=== PATIENT | female | born 1960 | race Caucasian/White ===

== ENCOUNTER 2016-08-24 09:56 | Outpatient (RCR) | payer BC ==
--- OUTSIDE RECORDS SUMMARY | 2016-07-18 13:51 | XMS REPORT | Continuity of Care Document ---
Author Author [facility] Organization [facility] Address Unknown Phone Unavailable Care Team Providers Care Label Stamper Name Role Phone NO, LOCAL PHYSICIAN PCP Unavailable Insurance Providers Payer Name Policy Number Subscriber Name Relationship [facility] [id number] GilbertChhaya 18 Self / Same As Patient Advance Directives Directive Response Recorded Date/Time Advance Directives No 05/18/16 4:25am Resuscitation Status Full Code 05/18/16 4:25am Chief Complaint and Reason for Visit Chief Complaint Abdominal/GI Problems Reason for Visit [id number] Problems Active Problems Medical Problem Onset Date Status Lumbar sprain Unknown Acute Ureteral stone Unknown Acute Medications Current Home Medications Medication Dose Units Route Directions Days/Qty Instructions Start Date Cyclobenzaprine Hcl (Flexeril) 10 Mg 1 Each Oral Twice A Day 20 Acetaminophen/Hydrocodone Bitart 1 Ea 1 Ea Oral Q 4 - 6 Hrs Prn 30 07/09 Ciprofloxacin Hcl 500 Mg 500 Mg Oral Twice A Day 14 05/18/16 Hydrocodone/Acetaminophen 1 Each 1 Each Oral Every 6 Hours as needed for Pain 12 05/18/16 Social History Social History Problem Response Recorded Date/Time Alcohol Use Denies Use 07/27/2013 12:17pm Recreational Drug Use No 07/27/2013 12:17pm Recent Foreign Travel No 05/18/2016 4:25am Recent Infectious Disease Exposure No 05/18/2016 4:25am Smoking Status Never a Smoker 05/18/2016 4:38am Recent Hopitalizations No 05/18/2016 4:25am Query Response Start Date Stop Date Smoking Status Never a Smoker Hospital Discharge Instructions No hospital discharge instructions. Plan of Care Discharge Date 05/18/16 6:20am Disposition 01 HOME, SELF-CARE Condition at Discharge Stable Instructions/Education Provided Kidney Stones (DC) Prescriptions See Medication Section Referrals NO,LOCAL PHYSICIAN - Primary Care Physician SELINA GLYNN MD - Additional Instructions/Education All discharge instructions reviewed with patient and/or family. Voiced understanding. Drink plenty of fluids. Follow-up with Dr. Glynn as needed. Return for worse pain, fever, vomiting, weakness, breathing problems or other concerns as needed. You should take ibuprofen 800 mg every 8 hours for the next 3 days and then as needed. Take other pain medicines as directed. Take antibiotics as directed. Functional Status No functional status results. Allergies, Adverse Reactions, Alerts Allergen Type Severity Reaction Status Last Updated Penicillins ([id number]) Allergy Unknown Active 04/26/06 Codeine Adverse Reaction Unknown NAUSEA,VOMITING Active 04/26/06 Meperidine Allergy Active 07/27/13 Immunizations No immunization records. Vital Signs Acute Vital Signs Vital Response Date/Time Temperature (Fahrenheit) 98.0 degrees F (97.6 - 99.5) 05/18/2016 4:25am Temperature (Calculated Celsius) 36.08099 degrees C (36.4 - 37.5) 05/18/2016 4:25am Temperature Source Temporal 05/18/2016 4:25am Pulse Rate (adult) 78 bpm (60 - 90) 05/18/2016 4:25am Respiratory Rate 18 bpm (12 - 24) 05/18/2016 4:25am O2 Sat by Pulse Oximetry 98 % (88 - 100) 05/18/2016 4:25am Blood Pressure 115/73 mm Hg 05/18/2016 4:25am Blood Pressure Mean 87 mm Hg 05/18/2016 4:25am Pain Numeric Pain Scale 5-Moderate Pain 05/18/2016 6:02am Height (Feet) 5 feet 05/18/2016 4:25am Height (Inches) 6 inches 05/18/2016 4:25am Height (Calculated Centimeters) 167.909305 cm 05/18/2016 4:25am Weight (Pounds) 140 pounds 05/18/2016 4:25am Weight (Calculated Kilograms) 63.455988 kilograms 05/18/2016 4:25am Capillary Refill Capillary Refill Less Than 3 Seconds 05/18/2016 4:25am Height 5 ft 6 in Weight 140 lb Body Mass Index 22.6 kg/m^2 Results Laboratory Results Test Name Result Units Flags Reference Collection Date/Time Result Date/ Time Comments White Blood Count 5.1 10^3/uL 4.3-11.0 05/18/2016 4:am 05/18/2016 4: 36am Red Blood Count 4.29 10^6/uL L 4.35-5.85 05/18/2016 4:05/18/2016 4: 36am Hemoglobin 13.1 G/DL 11.5-16.0 05/18/2016 4:05/18/2016 4:36am Hematocrit 39 % 35-52 05/18/2016 4:05/18/2016 4:36am Mean Corpuscular Volume 92 FL 80-99 05/18/2016 4:05/18/2016 4: 36am Mean Corpuscular Hemoglobin 31 PG 25-34 05/18/2016 4:05/18/2016 4: 36am Mean Corpuscular Hemoglobin Concent 33 G/DL 32-36 05/18/2016 4: 4:36am Red Cell Distribution Width 12.7 % 10.0-14.5 05/18/2016 4:2015 4:36am Platelet Count 268 10^3/uL 130-400 05/18/2016 4:05/18/2016 4:36am Mean Platelet Volume 9.4 FL 7.4-10.4 05/18/2016 4:05/18/2016 4: 36am Neutrophils (%) (Auto) 39 % L 42-75 05/18/2016 4:05/18/2016 4:36am Lymphocytes (%) (Auto) 44 % 12-44 05/18/2016 4:05/18/2016 4:36am Monocytes (%) (Auto) 11 % 0-12 05/18/2016 4:05/18/2016 4:36am Eosinophils (%) (Auto) 5 % 0-10 05/18/2016 4:05/18/2016 4:36am Basophils (%) (Auto) 1 % 0-10 05/18/2016 4:05/18/2016 4:36am Neutrophils # (Auto) 2.0 X 10^3 1.8-7.8 05/18/2016 4:05/18/2016 4: 36am Lymphocytes # (Auto) 2.3 X 10^3 1.0-4.0 05/18/2016 4:05/18/2016 4: 36am Monocytes # (Auto) 0.6 X 10^3 0.0-1.0 05/18/2016 4:am 05/18/2016 4: 36am Eosinophils # (Auto) 0.2 10^3/uL 0.0-0.3 05/18/2016 4:05/18/2016 4 :36am Basophils # (Auto) 0.1 10^3/uL 0.0-0.1 05/18/2016 4:05/18/2016 4: 36am Urine Color YELLOW 05/18/2016 5:06am 05/18/2016 5:25am Urine Clarity CLEAR 05/18/2016 5:06am 05/18/2016 5:25am Urine pH 5 5-9 05/18/2016 5:06am 05/18/2016 5:25am Urine Specific [place] 1.025 * 1.016-1.022 05/18/2016 5:06am 2015 5:25am Urine Protein NEGATIVE NEGATIVE 05/18/2016 5:06am 05/18/2016 5:25am Urine Glucose (UA) NEGATIVE NEGATIVE 05/18/2016 5:06am 05/18/2016 5: 25am Urine RBC (Auto) 5+ * NEGATIVE 05/18/2016 5:06am 05/18/2016 5:25am Urine Ketones NEGATIVE NEGATIVE 05/18/2016 5:06am 05/18/2016 5:25am Urine Nitrite NEGATIVE NEGATIVE 05/18/2016 5:06am 05/18/2016 5:25am Urine Bilirubin NEGATIVE NEGATIVE 05/18/2016 5:06am 05/18/2016 5: 25am Urine Urobilinogen NORMAL MG/DL NORMAL 05/18/2016 5:06am 05/18/2016 5: 25am Urine Leukocyte Esterase NEGATIVE NEGATIVE 05/18/2016 5:06am 2015 5:25am Urine RBC 50-100 /HPF * 05/18/2016 5:06am 05/18/2016 5:25am Urine WBC 0-2 /HPF 05/18/2016 5:06am 05/18/2016 5:25am Urine Bacteria TRACE /HPF 05/18/2016 5:06am 05/18/2016 5:25am Urine Crystals PRESENT /LPF * 05/18/2016 5:06am 05/18/2016 5:25am Urine Calcium Oxalate Crystals MODERATE /LPF * 05/18/2016 5:06am 2015 5:25am Urine Casts NONE /LPF 05/18/2016 5:06am 05/18/2016 5:25am Urine Mucus NEGATIVE /LPF 05/18/2016 5:06am 05/18/2016 5:25am Urine Culture Indicated NO 05/18/2016 5:06am 05/18/2016 5:25am Sodium Level 142 MMOL/L 135-145 05/18/2016 4:27am 05/18/2016 5:04am Potassium Level 4.1 MMOL/L 3.6-5.0 05/18/2016 4:27am 05/18/2016 5:04am Chloride Level 110 MMOL/L H 98-107 05/18/2016 4:27am 05/18/2016 5:04am Carbon Dioxide Level 19 MMOL/L L 21-32 05/18/2016 4:27am 05/18/2016 5: 04am Anion Gap 13 MMOL/L 5-14 05/18/2016 4:27am 05/18/2016 5:04am Blood Urea Nitrogen 12 MG/DL 7-18 05/18/2016 4:27am 05/18/2016 5:04am Creatinine 0.97 MG/DL 0.60-1.30 05/18/2016 4:27am 05/18/2016 5:04am BUN/Creatinine Ratio 12 05/18/2016 4:27am 05/18/2016 5:04am Estimat Glomerular Filtration Rate 60 05/18/2016 4:27am 05/18/2016 5:04am GFR INTERPRETIVE DATA UNITS FOR ESTIMATED GFR (eGFR): mL/min/1.73 M2 REFERENCE RANGE FOR ESTIMATED GFR (eGFR) eGFR NORMAL eGFR >60 MODERATELY DECREASED eGFR 30-59 SEVERLY DECREASED eGFR 15-29 KIDNEY FAILURE <15 (OR DIALYSIS) Glucose Level 139 MG/DL H 70-105 05/18/2016 4:am 05/18/2016 5:04am Calcium Level 9.1 MG/DL 8.5-10.1 05/18/2016 4:2705/18/2016 5:04am Total Bilirubin 0.4 MG/DL 0.1-1.0 05/18/2016 4:27am 05/18/2016 5:04am Alkaline Phosphatase 84 U/L 40-136 05/18/2016 4:am 05/18/2016 5:04am Aspartate Amino Transf (AST/SGOT) 25 U/L 5-34 05/18/2016 4:am 2015 5:04am Alanine Aminotransferase (ALT/SGPT) 19 U/L 0-55 05/18/2016 4:am 05/18 5:04am Total Protein 6.6 G/DL 6.4-8.2 05/18/2016 4:am 05/18/2016 5:04am Albumin 4.0 G/DL 3.2-4.5 05/18/2016 4:am 05/18/2016 5:04am Procedures No known history of procedures. Encounters Encounter Location Arrival/Admit Date Discharge/Depart Date Attending Provider Departed Emergency Room [facility] 05/18/16 4:am 05/18 6:20am IRMA HUNTER MD Recent Diagnosis
[2016-07-18 14:41] LABS: ANION GAP 10 MMOL/L (5-14); BLOOD UREA NITROGEN 12 MG/DL (7-18); BUN/CREATININE RATIO 13; CALCIUM 9.5 MG/DL (8.5-10.1); CARBON DIOXIDE 25 MMOL/L (21-32); CHLORIDE 106 MMOL/L (98-107); CREATININE SERUM 0.92 MG/DL (0.60-1.30); GFR ESTIMATED > 60; GLUCOSE 95 MG/DL (70-105); PHOSPHORUS 3.9 MG/DL (2.3-4.7); POTASSIUM 3.7 MMOL/L (3.6-5.0); SODIUM 141 MMOL/L (135-145); URIC ACID 4.6 MG/DL (2.6-7.2)
[2016-07-19 07:40] LABS: CALCIUM PARA THYROID HORMONE 9.9 mg/dL (8.5-10.5)
[~2016-08-24 09:56] MED LIST: CIPR500T4 PO; CYCL10TA9 PO; HYDR-3720 PO; HYDR-3812 PO; HYDR-3820 PO; NITR-65 PO; PHEN-640 PO
[2016-08-27 18:38] LABS: STONE RISK AMMONIUM 37 mEq/24hr (14-62); STONE RISK BRUSHITE 4.56 (< 2.00); STONE RISK CALCIUM 379 mg/day (< 250); STONE RISK CITRATE 1516 mg/day (> 320); STONE RISK CREATININE 2158 mg/day (600-1800); STONE RISK MAGNESIUM 241 mg/day (> 60); STONE RISK OXALATE 51 mg/day (< 45); STONE RISK PH 6.2 (5.5-7.0); STONE RISK PHOSPHOROUS 1496 mg/day (< 1100); STONE RISK POTASSIUM 52 mEq/24hr (19-135); STONE RISK SODIUM 217 mEq/24hr (< 200); STONE RISK SODIUM URATES 4.33 (< 2.00); STONE RISK STRUVITE 3.85 (< 75.00); STONE RISK SULFITE 19 mmol/day (< 30); STONE RISK TOTAL VOLUME 1.55 L/day (> 2.00); STONE RISK URIC ACID 671 mg/day (< 700); STONE RISK URIC ACID SAT 1.19 (< 2.00)
== END 2016-10-16 | disposition home or self-care (01) ==
LOC: LAB 09:56
PROVIDERS: ATTEND Urology
DX: N20.9 Urinary calculus, unspecified (principal)
CPT/HCPCS: 36415; 80048; 82140; 82340; 82507; 82570; 83735; 83945; 83970; 83986; 84100; 84105; 84133; 84300; 84392; 84550; 84560

== ENCOUNTER → 2019-06-25 | Outpatient (CLI) | payer BC ==
[~2019-06-25] MED LIST changes: +ACHD5005 PO; -HYDR-3812 PO
[2019-06-25 15:59] LABS: BASOPHILS % (AUTO) 1 % (0-10); EOSINOPHILS # (AUTO) 0.1 10^3/uL (0.0-0.3); EOSINOPHILS % (AUTO) 3 % (0-10); HEMATOCRIT 41 % (35-52); HEMOGLOBIN 13.5 G/DL (11.5-16.0); LYMPHOCYTES # (AUTO) 1.2 X 10^3 (1.0-4.0); LYMPHOCYTES % (AUTO) 29 % (12-44); MEAN CORPUSCULAR HEMOGLOBIN 31 PG (25-34); MEAN CORPUSCULAR HGB CONC 33 G/DL (32-36); MEAN CORPUSCULAR VOLUME 94 FL (80-99); MEAN PLATELET VOLUME 9.2 FL (7.4-10.4); MONOCYTES # (AUTO) 0.3 X 10^3 (0.0-1.0); MONOCYTES % (AUTO) 8 % (0-12); NEUTROPHILS # (AUTO) 2.5 X 10^3 (1.8-7.8); NEUTROPHILS % (AUTO) 60 % (42-75); PLATELET COUNT 242 10^3/uL (130-400); RED CELL DISTRIBUTION WIDTH 12.6 % (10.0-14.5); WHITE BLOOD COUNT 4.2 10^3/uL (4.3-11.0)
--- NOTE | 2019-06-25 16:08 | Diagnostic Imaging Report ---
Indication: Right flank pain KUB 3:45 PM There are mild degenerative changes in the lumbosacral spine. Bowel gas pattern is normal. There are no pathologic masses or calcifications. IMPRESSION: No acute abnormalities in the abdomen. Dictated by: Dictated on workstation # [id number]
[2019-06-25 16:27] LABS: ALANINE AMINOTRANSFERASE 12 U/L (0-55); ALBUMIN 4.4 GM/DL (3.2-4.5); ALKALINE PHOSPHATASE 67 U/L (40-136); BILIRUBIN,TOTAL 0.5 MG/DL (0.1-1.0); BUN/CREATININE RATIO 8; CALCIUM 9.1 MG/DL (8.5-10.1); CARBON DIOXIDE 23 MMOL/L (21-32); CHLORIDE 108 MMOL/L (98-107); CHOLESTEROL 200 MG/DL (< 200); CREATININE SERUM 0.83 MG/DL (0.60-1.30); GFR ESTIMATED > 60; GLUCOSE 95 MG/DL (70-105); HDL CHOLESTEROL 53 MG/DL (40-60); POTASSIUM 3.7 MMOL/L (3.6-5.0); SODIUM 141 MMOL/L (135-145); TOTAL PROTEIN 6.7 GM/DL (6.4-8.2); TRIGLYCERIDES 206 MG/DL (<150); VLDL CHOLESTEROL 41 MG/DL (5-40)
== END ==
LOC: RAD 15:26
PROVIDERS: ATTEND Nurse Practitioner Family
DX: Z13.220 Encounter for screening for lipoid disorders (principal); Z00.00 Encounter for general adult medical examination without abnormal findings; E55.0 Rickets, active; N20.0 Calculus of kidney; R53.83 Other fatigue
CPT/HCPCS: 36415; 74018; 80053; 80061; 82306; 84443; 85025

== ENCOUNTER → 2019-07-04 | Outpatient (CLI) | payer BC, OTHER ==
--- NOTE | 2019-07-04 16:23 | Diagnostic Imaging Report ---
INDICATION: Routine screening. No prior mammograms are available for comparison. 2-D and 3-D bilateral screening mammography was performed. The current study was also evaluated with a Computer Aided Detection (CAD) system. 3-D tomosynthesis was also performed and reviewed. FINDINGS: Both breasts are heterogeneously dense, limiting the sensitivity of mammography. No dominant mass or malignant-appearing microcalcifications are seen. Axillae are unremarkable. IMPRESSION: No mammographic features suspicious for malignancy are identified. ACR BI-RADS Category 1: Negative. Result letter will be mailed to the patient. Note: At least 10% of breast cancer is not imaged by mammography. Dictated by: Dictated on workstation # [id number]
== END ==
LOC: RAD 11:32
PROVIDERS: ATTEND Nurse Practitioner Family
DX: Z12.31 Encounter for screening mammogram for malignant neoplasm of breast (principal)
CPT/HCPCS: 77067

== ENCOUNTER 2019-11-15 22:47 | Emergency (ER) | payer OTHER ==
[~2019-11-15] VITALS: Ht 168 cm; Wt 62.1 kg
[~2019-11-15 22:47] MED LIST changes: +ACHYD1T PO; -HYDR-3820 PO
[2019-11-15] MEDS ORDERED: VITAMIN (22:59)
[2019-11-15] MEDS ORDERED: NS IV 1000 ML 1,000 ML IV ONE (23:00)
[2019-11-15] MEDS ORDERED: fentaNYL INJECTION 100 MCG/2 ML AMP IVP STA (23:00)
[2019-11-15 23:25] LABS: BASOPHILS % (AUTO) 0 % (0-10); EOSINOPHILS # (AUTO) 0.1 10^3/uL (0.0-0.3); EOSINOPHILS % (AUTO) 1 % (0-10); HEMATOCRIT 40 % (35-52); HEMOGLOBIN 13.4 G/DL (11.5-16.0); LYMPHOCYTES # (AUTO) 2.1 X 10^3 (1.0-4.0); LYMPHOCYTES % (AUTO) 24 % (12-44); MEAN CORPUSCULAR HEMOGLOBIN 31 PG (25-34); MEAN CORPUSCULAR HGB CONC 33 G/DL (32-36); MEAN CORPUSCULAR VOLUME 92 FL (80-99); MEAN PLATELET VOLUME 9.1 FL (7.4-10.4); MONOCYTES # (AUTO) 0.7 X 10^3 (0.0-1.0); MONOCYTES % (AUTO) 8 % (0-12); NEUTROPHILS % (AUTO) 67 % (42-75); PLATELET COUNT 259 10^3/uL (130-400); WHITE BLOOD COUNT 8.8 10^3/uL (4.3-11.0)
--- NOTE | 2019-11-15 23:25 | ED Fall/Injury ---
General Chief Complaint: Trauma-Non Activation Stated Complaint: FELL BACK PAIN Nursing Triage Note: PT REPORTS APPROX. 5FT FALL FROM LADDER LANDING ON [place]. C/O RIGHT BACK PAIN RADIATING TO RIBS. Source: patient Exam Limitations: no limitations History of Present Illness Date Seen by Provider: November 15, 2019 Time Seen by Provider: 22:48 Initial Comments Here with report of fall from a ladder about 5 feet. She was standing on the la dder and a knee. She when the neighbor bridge actually toppled over and she fell on top of the landing flat on her back. Complains of severe right side chest pain posterior and lateral down to the lower rib margin. Does have abrasions at the lateral posterior junction on the right midthoracic with bruising and pain to the lower portion. Denies loss of consciousness. States that it did significantly knocked the wind out of her. Denies hitting her head. This occurred about 4:30 PM and she tried to tough it out until now. States the pain is so bad when she is laying back that she can't hardly breathe. She has to sit up and forward to get comfortable area. Denies other injury. Denies nausea or vomiting. Denies dysuria. She tried topical patch with lidocaine to help and that did not. Location Injury Occurred: HOME Occurred: this afternoon Severity: moderate Injuries/Pain Location: chest, abdomen, back Context: slipped Loss of Consciousness: no loss of consciousness Modifying Factors: Worse With Movement Associated Symptoms (Fall): Abdominal Pain, Chest Pain; No Confusion, No Headache, No Lightheadedness; Muscle Spasms; No Nausea/Vomiting, No Neck Pain, No Trouble Walking Allergies and Home Medications Allergies Coded Allergies: Penicillins (Verified Allergy, Unknown, 04/26/06) meperidine (Verified Allergy, Unknown, 06/23/16) codeine (Verified Adverse Reaction, Unknown, NAUSEA,VOMITING, 04/26/06) Patient Home Medication List Home Medication List Reviewed: Yes Review of Systems Review of Systems Constitutional: see HPI; No chills, No fever Eyes: No Symptoms Reported Ears, Nose, Mouth, Throat: no symptoms reported Respiratory: No cough; other (pain with moderate to deep breathing.) Cardiovascular: chest pain; No palpitations Gastrointestinal: abdominal pain (right-sided); No nausea, No vomiting Genitourinary: no symptoms reported Musculoskeletal: see HPI, back pain, muscle pain, muscle stiffness Skin: change in color, lesions Psychiatric/Neurological: No Symptoms Reported All Other Systems Reviewed Negative Unless Noted: Yes Past Iorcdds-Jgsmdf-Ieknvg Hx Past Med/Social Hx: Reviewed Nursing Past Med/Soc Hx Patient Social History Alcohol Use: Denies Use Recreational Drug Use: No Smoking Status: Never a Smoker Recent Foreign Travel: No Contact w/Someone Who Travel: No Recent Infectious Disease Expo: No Recent Hopitalizations: No Physical Abuse: No Sexual Abuse: No Mistreated: No Fear: No Immunizations Up To Date Tetanus Booster (TDap): Unknown Seasonal Allergies Seasonal Allergies: No Past Medical History Surgeries: Yes (partial hysterectomy, LITHOTRYPSY) Hysterectomy Respiratory: No Cardiac: No Neurological: No : No Reproductive Disorders: No ASSISTANT GROCERY History: Menopausal Genitourinary: Yes Kidney Stones Gastrointestinal: No Musculoskeletal: No Endocrine: No HEENT: Yes Cataract Cancer: No Psychosocial: No Integumentary: No Blood Disorders: Yes Adverse Reaction/Blood Tranf: No Family Medical History Reviewed Nursing Family Hx Cataracts 19 FATHER 19 MOTHER Diabetes mellitus 19 FATHER FH: breast cancer 19 MOTHER FHx: heart disease 19 FATHER G8 SISTER Hypertension 19 FATHER G8 SISTER Physical Exam Vital Signs Vital Signs - First Documented 11/15/19 22:52 Temp 36.6 Pulse 93 Resp 16 B/P (MAP) 126/93 (104) Pulse Ox 98 O2 Delivery Room Air Capillary Refill : Less Than 3 Seconds Height, Weight, BMI Height: 5'6.00" Weight: 150lbs. 0.0oz. 68.730364nh; 22.00 BMI Method:Stated General Appearance: WD/WN, mild distress HEENT: PERRL/EOMI, pharynx normal Neck: non-tender, full range of motion, supple, normal inspection Cardiovascular: regular rate, rhythm, no murmur Respiratory: lungs clear, other (unable to take deep breath due to pain but lung sounds all 4 quadrants) Peripheral Pulses: 2+ Dorsalis Pedis (R), 2+ Left Dors-Pedis (L), 2+ Radial Pulses (R), 2+ Radial Pulses (L) Gastrointestinal: soft; No guarding, No rebound; tenderness (right flank and right upper quadrant) Back: no vertebral tenderness, muscle spasm (with deep breathing), other (right sided back pain from the mid to lower rib margin) Extremities: normal range of motion, non-tender, normal inspection Neurologic/Psychiatric: alert, oriented x 3 Skin: warm/dry, ecchymosis (right posterior lateral rib margin mid chest and lower), other (abrasion to the mid rib line In the lateral posterior junction on the right) [place] Coma Score Best Eye Response: (4) Open Spontaneously Best Verbal Response: (5) Oriented Best Motor Response: (6) Obeys Commands Progress/Results/Core Measures Results/Orders Lab Results Laboratory Tests Test 11/15/19 23:00 Range/Units White Blood Count 8.8 4.3-11.0 10^3/uL Red Blood Count 4.37 4.35-5.85 10^6/uL Hemoglobin 13.4 11.5-16.0 G/DL Hematocrit 40 35-52 % Mean Corpuscular Volume 92 80-99 FL Mean Corpuscular Hemoglobin 31 25-34 PG Mean Corpuscular Hemoglobin Concent 33 32-36 G/DL Red Cell Distribution Width 13.0 10.0-14.5 % Platelet Count 259 130-400 10^3/uL Mean Platelet Volume 9.1 7.4-10.4 FL Neutrophils (%) (Auto) 67 42-75 % Lymphocytes (%) (Auto) 24 12-44 % Monocytes (%) (Auto) 8 0-12 % Eosinophils (%) (Auto) 1 0-10 % Basophils (%) (Auto) 0 0-10 % Neutrophils # (Auto) 6.0 1.8-7.8 X 10^3 Lymphocytes # (Auto) 2.1 1.0-4.0 X 10^3 Monocytes # (Auto) 0.7 0.0-1.0 X 10^3 Eosinophils # (Auto) 0.1 0.0-0.3 10^3/uL Basophils # (Auto) 0.0 0.0-0.1 10^3/uL Sodium Level 140 135-145 MMOL/L Potassium Level 3.6 3.6-5.0 MMOL/L Chloride Level 107 98-107 MMOL/L Carbon Dioxide Level 23 21-32 MMOL/L Anion Gap 10 5-14 MMOL/L Blood Urea Nitrogen 7 7-18 MG/DL Creatinine 0.88 0.60-1.30 MG/DL Estimat Glomerular Filtration Rate > 60 BUN/Creatinine Ratio 8 Glucose Level 118 H 70-105 MG/DL Calcium Level 9.5 8.5-10.1 MG/DL Corrected Calcium 9.1 8.5-10.1 MG/DL Total Bilirubin 0.8 0.1-1.0 MG/DL Aspartate Amino Transf (AST/SGOT) 19 5-34 U/L Alanine Aminotransferase (ALT/SGPT) 16 0-55 U/L Alkaline Phosphatase 74 40-136 U/L Total Protein 7.2 6.4-8.2 GM/DL Albumin 4.5 3.2-4.5 GM/DL My Orders Orders - IRMA HUNTER MD Cbc With Automated Diff (11/15/19 23:00) Comprehensive Metabolic Panel (11/15/19:00) Ed Iv/Invasive Line Start (11/15/19:00) Ed Iv/Invasive Line Start (11/15/19 23:00) Ns Iv 1000 Ml (Sodium Chloride 0.9%) (11/15/19 23:00) Fentanyl Injection (Sublimaze Injection (11/15/19 23:00) Ct Chest/Abdomen/Pelvis W (11/15/19 23:00) Iohexol Injection (Omnipaque 350 Mg/Ml 1 (11/16/19 00:00) Received Contrast (Hold Metformin- Contr (11/16/19 00:00) Ns (Ivpb) (Sodium Chloride 0.9% Ivpb Bag (11/16/19 00:00) Ketorolac Injection (Toradol Injection) (11/16/19 00:36) Medications Given in ED Current Medications Medications Dose Ordered Sig/Tiffany Route Start Time Stop Time Status Last Admin Dose Admin Iohexol 100 ml ONCE ONCE IV 11/16/19 00:00 11/16/19 00:02 DC 11/15/19 23:57 100 ML Sodium Chloride 100 ml ONCE ONCE IV 11/16/19 00:00 11/16/19 00:02 DC 11/15/19 23:57 80 ML Sodium Chloride 1,000 ml @ 0 mls/hr Q0M ONCE IV 11/15/19 23:00 11/15/19 23:20 DC 11/15/19 23:26 0 MLS/HR Vital Signs/I&O 11/15/19 22:52 Temp 36.6 Pulse 93 Resp 16 B/P (MAP) 126/93 (104) Pulse Ox 98 O2 Delivery Room Air Blood Pressure Mean: 104 Progress Progress Note : Progress Note Seen and evaluated. IV, labs, normal saline 1 L bolus, fentanyl 50 g IV, CT chest, abdomen and pelvis with contrast, scan ordered. Monitor patient. 0053: CT complete and no acute fractures or intra-abdominal findings. Toradol 15 mg IV ordered. Pain is starting to return now. She will get prescription in the morning. Discussed [id number] treatment as well. Discharged home with return precautions. Patient verbalize understanding instructions and agreement with plan. Diagnostic Imaging Diagonstic Imaging: CT Plain Films/CT/US/NM/MRI: chest, abdomen, pelvis Comments No evidence of acute chest injury. No evidence of acute injury to the abdomen and pelvis. Reviewed: Reviewed [place] Study, Reviewed by Me Departure Impression Primary Impression: Contusion, chest wall Qualified Codes: S20.211A - Contusion of right front wall of thorax, initial encounter Disposition: HOME, SELF-CARE Condition: Stable Departure-Patient Inst. Decision time for Depature: 00:55 Referrals: IMAN QUINTANILLA MD (PCP/Family) Primary Care Physician Patient Instructions: Bruised Rib (DC), Blunt Chest Trauma (DC) Add. Discharge Instructions: All discharge instructions reviewed with patient and/or family. Voiced understanding. You may use [id number] Icy Hot with lidocaine patches, Aspercreme with lidocaine patches, Salonpas with lidocaine patches or similar items to area of concern per package directions. You may take ibuprofen 600 mg every 8 hours as needed for pain or Aleve one or 2 tablets twice daily (not both as they are both same class of medicine). You may also take Tylenol/acetaminophen 1000 mg every 8 hours as needed for pain if you're not taking the prescribed pain medicine. Do not take both at the same time as they both have acetaminophen in them. Drink plenty of fluids and get plenty of rest. You may use ice or heat to area of concern which ever is more comfortable. Return for worse pain, fever, vomiting, weakness, breathing problems or other concerns as needed. Scripts Hydrocodone/Acetaminophen (Hydrocodone/Acetaminophen 5 MG/325 MG TAB) 1 Each Tablet 1 TAB PO Q6H for Pain MDD 10 TABS for 7 Days, #10 TAB 0 Refills Prov: IRMA HUNTER MD 11/16/19 IRMA HUNTER MD November 15, 2019 23:25
[2019-11-15 23:29] LABS: ALBUMIN 4.5 GM/DL (3.2-4.5)
[2019-11-15 23:30] LABS: CHLORIDE 107 MMOL/L (98-107); POTASSIUM 3.6 MMOL/L (3.6-5.0); SODIUM 140 MMOL/L (135-145)
[2019-11-15 23:31] LABS: CALCIUM 9.5 MG/DL (8.5-10.1)
[2019-11-15 23:32] LABS: GLUCOSE 118 MG/DL (70-105); TOTAL PROTEIN 7.2 GM/DL (6.4-8.2)
[2019-11-15 23:33] LABS: CARBON DIOXIDE 23 MMOL/L (21-32)
[2019-11-15 23:34] LABS: BILIRUBIN,TOTAL 0.8 MG/DL (0.1-1.0)
[2019-11-15 23:35] LABS: ALKALINE PHOSPHATASE 74 U/L (40-136)
[2019-11-15 23:36] LABS: CREATININE SERUM 0.88 MG/DL (0.60-1.30); GFR ESTIMATED > 60
[2019-11-15 23:37] LABS: BUN/CREATININE RATIO 8
[2019-11-15 23:39] LABS: ALANINE AMINOTRANSFERASE 16 U/L (0-55)
[2019-11-16] MEDS ORDERED: NS 100 ML (IVPB) BAG IV ONE
[2019-11-16] MEDS ORDERED: IOHEXOL 350 MG/ML 100 ML (OMNIPAQUE 350) VIAL IV ONE
[2019-11-16] MEDS ORDERED: HOLD METFORMIN - RECEIVED CONTRAST 20 ML VIAL IV SCH
[2019-11-16] MEDS ORDERED: KETOROLAC 30 MG/ML VIAL IVP STA (00:36)
[2019-11-16] MEDS ORDERED: HYDR-4226 PO (00:59)
[2019-11-16 01:00] VITALS: BP 122/74
--- NOTE | 2019-11-16 07:41 | Diagnostic Imaging Report ---
EXAMINATION: CT Chest, Abdomen and Pelvis with intravenous contrast. TECHNIQUE: Multiple contiguous axial images were obtained through the chest, abdomen and pelvis after the uneventful administration of intravenous contrast. All CT scans use one or more of the following dose optimizing techniques: automated exposure control, MA and/or KvP adjustment based on a patient size and exam type, or iterative reconstruction. INDICATION: Fall from ladder. Right back pain. COMPARISON: 06/23/2016. FINDINGS: CT CHEST: The heart size is within normal limits. No pericardial effusion is present. The thoracic aorta has an unremarkable appearance without evidence of dissection or aneurysm. There is no mediastinal, hilar, or axillary lymphadenopathy. Small subcentimeter nodules are seen in the thyroid which do not meet size criteria for follow-up. The lungs demonstrate no pulmonary nodules or masses. There are no focal areas of consolidation. No central endobronchial obstructing lesions are identified. There are no pleural effusions or pneumothorax. The osseous structures demonstrate no acute abnormalities. CT ABDOMEN AND PELVIS: The liver, spleen, pancreas, adrenal glands, and kidneys have a normal appearance. There is no pathologically enlarged mesenteric or retroperitoneal adenopathy. A small hiatal hernia is present. The bowel loops are nondilated. There are scattered diverticuli in the colon without evidence of acute diverticulitis. There is no free fluid or free air. The osseous structures demonstrate no acute abnormalities. A small amount of atherosclerotic plaque is seen in the aorta. No evidence of dissection or aneurysm in the abdominal aorta. The major branch vessels are patent. Ureters and bladder have a normal appearance. There is no free air, loculated collection, or adenopathy in the pelvis. IMPRESSION: 1. No acute abnormalities in the chest, abdomen and pelvis. No free fluid or free air. No focal consolidations. 2. Scattered diverticuli without evidence of acute diverticulitis. 3. Small hiatal hernia. Agree with overnight report. Dictated by: Dictated on workstation # [id number]
== END 2019-11-16 01:00 | disposition home or self-care (01) ==
LOC: EDUNIT# 22:47 → ER 22:49
DX: S20.211A Contusion of right front wall of thorax, initial encounter (principal); R40.2142 Coma scale, eyes open, spontaneous, at arrival to emergency department; R40.2252 Coma scale, best verbal response, oriented, at arrival to emergency department; R40.2362 Coma scale, best motor response, obeys commands, at arrival to emergency department; Z88.0 Allergy status to penicillin; Z88.5 Allergy status to narcotic agent; Z80.3 Family history of malignant neoplasm of breast; Z82.49 Family history of ischemic heart disease and other diseases of the circulatory system; W11.XXXA Fall on and from ladder, initial encounter; Y92.009 Unspecified place in unspecified non-institutional (private) residence as the place of occurrence of the external cause
CPT/HCPCS: 36415; 71260; 74177; 80053; 85025

== ENCOUNTER 2022-08-22 15:53 | Emergency (ER) | payer SELFPAY ==
[~2022-08-22] VITALS: Ht 167.7 cm; Wt 62.1 kg
[~2022-08-22 15:53] MED LIST changes: -CIPR500T4 PO; +CIPR500T5 PO; +HYDR-4226 PO; +VITAMIN
[2022-08-22] MEDS ORDERED: KETOROLAC 15 MG/ML VIAL IVP ONE (16:15)
[2022-08-22] MEDS ORDERED: ONDANSETRON 4 MG/2 ML (SDV) Z0FRAN IVP ONE (16:15)
[2022-08-22] MEDS ORDERED: NS IV 1000 ML 1,000 ML IV STA (16:15)
--- NOTE | 2022-08-22 16:17 | ED Cardiac General ---
History of Present Illness General Chief Complaint: Chest Pain Stated Complaint: CHEST PAIN Source: patient Exam Limitations: no limitations History of Present Illness Date Seen by Provider: Aug 22, 2022 Time Seen by Provider: 16:05 Initial Comments Patient is a 62-year-old female negative past medical history who presents to the emergency department chief complaint severe headache with subjective fevers and chills, feeling short of breath, Chest pain, nausea. Patient had an episode of the same symptoms exactly a week ago that resolved within 24 hours. She thought she might have COVID at that time, did a test and it was negative. She states throughout last week she felt fine until this morning when the symptoms recurred again. She states she retested for COVID at home and it was positive today. Due to the chest pain which she states is midsternal, nonradiating she went to [facility] urgent care. They evaluated her and sent her to the emergency department for further evaluation. She does not smoke, has never been a smoker. No family history of early coronary disease. She does not take medication for hypertension or hypercholesterolemia, she is not a diabetic. Nothing makes the pain any worse, nothing has made it any better. She did take some kkne-elg-zknrupn headache medication prior to arrival and it has improved her headache a little. She has had headaches similar to this in the past. Denies urinary problems, no diarrhea. No black or bloody stools. No earache, runny nose or sore throat. Timing/Duration: 12 hours Severity: moderate Location: central Activities at Onset: none Prior CP/Workup: no prior chest pain, no prior cardiac workup NTG SL COMMUNITY DIETITIAN: No ASA po COMMUNITY DIETITIAN: No Associated Systoms: Fever/Chills, Headaches, Malaise, Nausea/Vomiting, Weakness Allergies and Home Medications Allergies Coded Allergies: Penicillins (Verified Allergy, Unknown, 04/26/06) meperidine (Verified Allergy, Unknown, 06/23/16) codeine (Verified Adverse Reaction, Unknown, NAUSEA,VOMITING, 04/26/06) Patient Home Medication List Home Medication List Reviewed: Yes Hydrocodone/Acetaminophen (Hydrocodone/Acetaminophen 5 MG/325 MG TAB) 1 Each Tablet, 1 TAB PO Q6H Prescribed by: IRMA HUNTER on 11/16/19 0059 Nirmatrelvir/Ritonavir (Paxlovid 300-100 mg Pack (Eua)) 300 Mg (150 Mg X 2)-100 Mg Tab.ds.pk, 1 EACH PO BID Prescribed by: PRADIP STRINGER on 08/22/221742 Ondansetron (Ondansetron Odt) 4 Mg Tab.rapdis, 4 MG SL Q8H PRN for NAUSEA/VOMITING Prescribed by: PRADIP STRINGER on 08/22/221742 [Vitamin] , (Reported) Entered as Reported by: GENEVIEVE MAXWELL on 11/15/19 7628 Review of Systems Review of Systems Constitutional: see HPI EENTM: No Symptoms Reported Respiratory: Shortness of Air Cardiovascular: Chest Pain Gastrointestinal: Nausea, Poor Appetite Genitourinary: No Symptoms Reported Musculoskeletal: no symptoms reported Skin: no symptoms reported Psychiatric/Neurological: Headache All Other Systems Reviewed Negative Unless Noted: Yes Past Vqbwghk-Xkeswx-Wnuvve Hx Immunizations Up To Date Tetanus Booster (TDap): Unknown Seasonal Allergies Seasonal Allergies: No Past Medical History Surgeries: Yes (partial hysterectomy, LITHOTRYPSY) Hysterectomy Respiratory: No Cardiac: No Neurological: No Reproductive Disorders: No [employer]ER History: Menopausal Genitourinary: Yes Kidney Stones Gastrointestinal: No Musculoskeletal: No Endocrine: No HEENT: Yes Cataract Cancer: No Psychosocial: No Integumentary: No Blood Disorders: Yes Adverse Reaction/Blood Tranf: No Family Medical History Cataracts 19 FATHER 19 MOTHER Diabetes mellitus 19 FATHER FH: breast cancer 19 MOTHER FHx: heart disease 19 FATHER G8 SISTER Hypertension 19 FATHER G8 SISTER Physical Exam Vital Signs Vital Signs - First Documented 08/22/22 15:55 Temp 36.6 Pulse 18 Resp 82 B/P (MAP) 109/65 (80) Pulse Ox 99 O2 Delivery Room Air Capillary Refill : Height, Weight, BMI Height: 5'6.00" Weight: 150lbs. 0.0oz. 68.850925pa; 22.00 BMI Method:Stated General Appearance: WD/WN, Anxious HEENT: PERRL/EOMI Neck: Normal Inspection, Supple Respiratory: Lungs Clear, Normal Breath Sounds, No Accessory Muscle Use, No Respiratory Distress, Other (Room air sats 100%) Cardiovascular: Regular Rate, Rhythm, Normal Peripheral Pulses Gastrointestinal: Normal Bowel Sounds, Non Tender, Soft Extremity: Normal Capillary Refill, Normal Inspection, Normal Range of Motion, No Calf Tenderness, No Pedal Edema Neurologic/Psychiatric: Alert, Oriented x3, No Motor/Sensory Deficits, machine hand II- XII Norm as Tested, Other (Anxious) Skin: Normal Color, Warm/Dry Progress/Results/Core Measures Results/Orders Lab Results Laboratory Tests Test 08/22/22 15:57 Range/Units White Blood Count 3.9 L 4.3-11.0 10^3/uL Red Blood Count 4.21 3.80-5.11 10^6/uL Hemoglobin 12.8 11.5-16.0 g/dL Hematocrit 39 35-52 % Mean Corpuscular Volume 92 80-99 fL Mean Corpuscular Hemoglobin 30 25-34 pg Mean Corpuscular Hemoglobin Concent 33 32-36 g/dL Red Cell Distribution Width 12.8 10.0-14.5 % Platelet Count 218 130-400 10^3/uL Mean Platelet Volume 9.5 9.0-12.2 fL Immature Granulocyte % (Auto) 0 % Neutrophils (%) (Auto) 87 H 42-75 % Lymphocytes (%) (Auto) 5 L 12-44 % Monocytes (%) (Auto) 7 0-12 % Eosinophils (%) (Auto) 0 0-10 % Basophils (%) (Auto) 0 0-10 % Neutrophils # (Auto) 3.5 1.8-7.8 10^3/uL Lymphocytes # (Auto) 0.2 L 1.0-4.0 10^3/uL Monocytes # (Auto) 0.3 0.0-1.0 10^3/uL Eosinophils # (Auto) 0.0 0.0-0.3 10^3/uL Basophils # (Auto) 0.0 0.0-0.1 10^3/uL Immature Granulocyte # (Auto) 0.0 0.0-0.1 10^3/uL Neutrophils % (Manual) 89 % Lymphocytes % (Manual) 6 % Monocytes % (Manual) 5 % Eosinophils % (Manual) 0 % Basophils % (Manual) 0 % Band Neutrophils 0 % Blood Morphology Comment NORMAL Prothrombin Time 13.6 12.2-14.7 SEC INR Comment 1.0 0.8-1.4 Activated Partial Thromboplast Time 31 24-35 SEC Sodium Level 137 135-145 MMOL/L Potassium Level 4.0 3.6-5.0 MMOL/L Chloride Level 106 98-107 MMOL/L Carbon Dioxide Level 20 L 21-32 MMOL/L Anion Gap 11 5-14 MMOL/L Blood Urea Nitrogen 10 7-18 MG/DL Creatinine 0.92 0.60-1.30 MG/DL Estimat Glomerular Filtration Rate 71 BUN/Creatinine Ratio 11 Glucose Level 128 H 70-105 MG/DL Calcium Level 8.9 8.5-10.1 MG/DL Corrected Calcium 8.8 8.5-10.1 MG/DL Magnesium Level 1.9 1.6-2.4 MG/DL Total Bilirubin 0.4 0.1-1.0 MG/DL Aspartate Amino Transf (AST/SGOT) 40 H 5-34 U/L Alanine Aminotransferase (ALT/SGPT) 31 0-55 U/L Alkaline Phosphatase 76 40-136 U/L Troponin I < 0.028 <0.028 NG/ML Total Protein 7.2 6.4-8.2 GM/DL Albumin 4.1 3.2-4.5 GM/DL My Orders Orders - PRADIP STRINGER MD Cbc With Automated Diff (08/22/22 16:15) Magnesium (08/22/22 16:15) Chest 1 View, Ap/Pa Only (08/22/22 16:15) Comprehensive Metabolic Panel (08/22/22 16:15) Protime With Inr (08/22/22 16:15) Partial Thromboplastin Time (08/22/22 16:15) O2 (08/22/22 16:15) Monitor-Rhythm Ecg Trace Only (08/22/22 16:15) Lipid Panel (08/23/22 06:00) Ed Iv/Invasive Line Start (08/22/22 16:15) Troponin I Elizabeth (08/22/22 16:15) Ns Iv 1000 Ml (Sodium Chloride 0.9%) (08/22/22 16:15) Ondansetron Injection (Zofran Injectio (08/22/22 16:15) Ketorolac Injection (Toradol Injection) (08/22/22 16:15) Covid-19 External Lab Results (08/22/22 16:28) Isolation Central Supply Req (08/22/22 16:28) Manual Differential (08/22/22 15:57) Acetaminophen Tablet (Tylenol Tablet) (08/22/22 17:45) Medications Given in ED Current Medications Medications Dose Ordered Sig/Tiffany Route Start Time Stop Time Status Last Admin Dose Admin Ketorolac Tromethamine 15 mg ONCE ONCE IVP 08/22/22 16:15 08/22/22 16:17 DC 08/22/22 16:26 15 MG Ondansetron HCl 4 mg ONCE ONCE IVP 08/22/22 16:15 08/22/22 16:16 DC 08/22/22 16:26 4 MG Vital Signs/I&O 08/22/22 08/22/22 15:55 15:55 Temp 36.6 Pulse 18 Resp 82 B/P (MAP) 109/65 (80) Pulse Ox 99 O2 Delivery Room Air Room Air Progress Progress Note : Time: 17:44 Progress Note Patient seen and examined by me, 62-year-old female with chief complaint midsternal chest pain, headache, body aches subjective fevers and chills. Evaluation today includes physical exam, CBC, chemistry, coagulation profile, troponin, chest x-ray and EKG. Physical exam pertinent for normal heart sounds, blood pressure in the 50s/60s, good blood pressure, clear lungs room air sats 97%. No increased work of breathing or respiratory distress is noted. No swelling in her legs. Abdomen is benign, soft. She does have a little reproducible chest wall tenderness. No crepitance to the chest wall, no rashes. No focal neurologic deficits. Differential diagnosis based on history and physical, COVID, pneumonia, acute coronary syndrome, pleurisy, nonspecific viral syndrome. Based on patient's history of positive home COVID test repeat COVID was not obtained. CBC reviewed, minimally depressed total white blood cell count with left shift. Chemistry is completely normal, troponin undetectable, coags within normal limits. Chest x-ray shows no focal infiltrate/consolidations. EKG sinus rhythm in the 80s with no ectopy or significant ST segment elevation or depression. Patient is treated with normal saline, Toradol, Zofran and subsequently a dose of extra strength Tylenol. She achieved moderate relief of symptoms. Based on her lack of risk factors for cardiovascular disease, no hypertension, no diabetes no smoking history no family history of coronary artery disease she would fall within the low risk category for acute coronary syndrome. She had onset of pain early this morning and therefore a single troponin is sufficient to rule out ACS. No clinical or objective findings to support bacterial pneumonia or any other pathology that would require hospitalization. Patient is quite apprehensive, anxious about her COVID diagnosis. She is reassured, offered Paxlovid for treatment as she falls within the window. She is agreeable. This prescription as well as Zofran sent to [facility] on [address]. Return precautions discussed with the patient and delineated in the discharge instructions. All questions are sought and answered. Patient is stable for discharge. Initial ECG Impression Date: Aug 22, 2022 Initial ECG Impression Time: 15:57 Initial ECG Rate: 84 Initial ECG Rhythm: Normal Sinus Initial ECG Intervals: Normal Initial ECG Impression: Nonspecific Changes Diagnostic Imaging Diagonstic Imaging: Xray Plain Films/CT/US/NM/MRI: chest Comments [facility] [place] NAME: NATALIA DIEHL [facility] REC#: [id number] PT STATUS: REG ER : 1960 PHYSICIAN: PRADIP STRINGER MD ADMIT DATE: 08/22/22/ER Draft Date of Exam:08/22/22 CHEST 1 VIEW, AP/PA ONLY INDICATION: Chest pain COMPARISON: None. FINDINGS: Single frontal view of the chest demonstrates normal heart size and pulmonary vascularity. The lungs are well aerated and clear. No large pleural effusion or pneumothorax is seen. The visualized osseous structures show no acute abnormalities. IMPRESSION: 1. No acute cardiopulmonary process. Dictated on workstation # [id number] Dict: 08/22/22 1625 Trans: 08/22/22 1627 [id number] Interpreted by: MERRITT DENSON MD Electronically signed by: Departure Impression Primary Impression: COVID-19 Additional Impression: Chest pain Qualified Codes: R07.89 - Other chest pain Disposition: 01 HOME, SELF-CARE Condition: Stable Departure-Patient Inst. Decision time for Depature: 17:41 Referrals: IMAN QUINTANILLA MD (PCP/Family) Primary Care Physician Patient Instructions: COVID-19 ED Add. Discharge Instructions: Push fluids at home so that you stay well-hydrated. Alternate [id number]-iqekdsv extra strength Tylenol 2 tablets with ibuprofen 3 tablets which is 600 mg every 6 hours with food as needed for headache/body aches. I have written you for the antiviral medication to treat COVID. Please take this as directed for 5 days. I have also written you for some ondansetron/Zofran; 4 mg tablets to be taken 1 every 8 hours as needed for nausea. If you develop high fever, worsening shortness of breath, vomiting or any other emergent, concerning symptoms please come back to the emergency room for reevaluation. You will need to quarantine for a total of 5 days at home from symptom onset. Then you will need to wear a mask while out in public for the following 5 days. Scripts Ondansetron (Ondansetron Odt) 4 Mg Tab.rapdis 4 MG SL Q8H PRN for NAUSEA/VOMITING, #12 TAB Prov: PRADIP STRINGER MD 08/22/22 Nirmatrelvir/Ritonavir (Paxlovid 300-100 mg Pack (Eua)) 300 Mg (150 Mg X 2)-100 Mg Tab.ds.pk 1 EACH PO BID for 5 Days, #1 PKG Prov: PRADIP STRINGER MD 08/22/22 Copy Copies To 1: IMAN QUINTANILLA MD, KATHRYN M MD Aug 22, 2022 16:17
--- NOTE | 2022-08-22 16:27 | Diagnostic Imaging Report ---
INDICATION: Chest pain COMPARISON: None. FINDINGS: Single frontal view of the chest demonstrates normal heart size and pulmonary vascularity. The lungs are well aerated and clear. No large pleural effusion or pneumothorax is seen. The visualized osseous structures show no acute abnormalities. IMPRESSION: 1. No acute cardiopulmonary process. Dictated by: Dictated on workstation # [id number]
[2022-08-22 16:28] LABS: ALBUMIN 4.1 GM/DL (3.2-4.5); BASOPHILS % (AUTO) 0 % (0-10); EOSINOPHILS % (AUTO) 0 % (0-10); HEMATOCRIT 39 % (35-52); HEMOGLOBIN 12.8 g/dL (11.5-16.0); LYMPHOCYTES # (AUTO) 0.2 10^3/uL (1.0-4.0); LYMPHOCYTES % (AUTO) 5 % (12-44); MEAN CORPUSCULAR HEMOGLOBIN 30 pg (25-34); MEAN CORPUSCULAR HGB CONC 33 g/dL (32-36); MEAN CORPUSCULAR VOLUME 92 fL (80-99); MEAN PLATELET VOLUME 9.5 fL (9.0-12.2); MONOCYTES # (AUTO) 0.3 10^3/uL (0.0-1.0); MONOCYTES % (AUTO) 7 % (0-12); NEUTROPHILS # (AUTO) 3.5 10^3/uL (1.8-7.8); NEUTROPHILS % (AUTO) 87 % (42-75); PLATELET COUNT 218 10^3/uL (130-400); WHITE BLOOD COUNT 3.9 10^3/uL (4.3-11.0)
[2022-08-22 16:29] LABS: CALCIUM 8.9 MG/DL (8.5-10.1)
[2022-08-22 16:30] LABS: TOTAL PROTEIN 7.2 GM/DL (6.4-8.2)
[2022-08-22 16:32] LABS: BILIRUBIN,TOTAL 0.4 MG/DL (0.1-1.0)
[2022-08-22 16:34] LABS: CREATININE SERUM 0.92 MG/DL (0.60-1.30)
[2022-08-22 16:37] LABS: MAGNESIUM 1.9 MG/DL (1.6-2.4)
[2022-08-22 16:51] LABS: PROTHROMBIN TIME PATIENT 13.6 SEC (12.2-14.7)
[2022-08-22 17:30] LABS: BAND NEUTROPHILS 0 %; BASOPHILS % (MANUAL) 0 %; EOSINOPHILS % (MANUAL) 0 %; LYMPHOCYTES % (MANUAL) 6 %; MONOCYTES % (MANUAL) 5 %; NEUTROPHILS % (MANUAL) 89 %; RBC MORPH NORMAL
[2022-08-22] MEDS ORDERED: NIRM1TAB PO (17:43)
[2022-08-22] MEDS ORDERED: ONDA4TAB11 SL (17:43)
[2022-08-22] MEDS ORDERED: ACETAMINOPHEN 500 MG TAB (TYLENOL) PO ONE (17:45)
[2022-08-22 18:00] VITALS: BP 115/71
== END 2022-08-22 18:00 | disposition home or self-care (01) ==
LOC: EDUNIT# 15:53 → ER 15:55
DX: U07.1 COVID-19 (principal); R50.9 Fever, unspecified; R51.9 Headache, unspecified; R11.0 Nausea; R06.02 Shortness of breath; R07.2 Precordial pain; Z28.310 Unvaccinated for COVID-19
CPT/HCPCS: 36415; 71045; 80053; 83735; 84484; 85007; 85027; 85610; 85730; 93005; 93041